=== PATIENT | female | born 1955 | race Caucasian/White ===

== ENCOUNTER → 2017-03-17 | Outpatient (CLI) | payer OTHER | LOC: RAD 09:45 | DX: M47.26 Other spondylosis with radiculopathy, lumbar region (principal); M79.604 Pain in right leg ==

== ENCOUNTER → 2017-06-24 | Outpatient (CLI) | payer OTHER | END | disposition home or self-care (01) | LOC: MRI 09:32 → EDSTATUS 12:48 → MRI 15:53 | DX: M25.551 Pain in right hip (principal) ==